=== PATIENT | female | born 1960 | race Caucasian/White ===

== ENCOUNTER 2017-04-19 10:32 | Outpatient (CLI) | payer OTHER ==
--- NOTE | 2017-04-20 12:46 | Mammography Report ---
DIGITAL SCREENING MAMMOGRAM: 04/19/2017 CLINICAL INDICATION: A 56-year-old with history of late childbearing, for screening. COMPARISON: 04/2016, 04/2015, 04/2014, 04/2013, 04/2012, 04/2011, 03/2010. TECHNIQUE: Routine CC and MLO projections were obtained of the breasts. FINDINGS: Parenchymal tissue within both breasts is heterogeneously dense, which may lower the sensi tivity of mammography; however, there are no dominant masses, suspicious microcalcifications, or seco ndary signs of malignancy. In comparison to the previous studies, there are no significant changes. ASSESSMENT: NO MAMMOGRAPHIC EVIDENCE OF MALIGNANCY. NO SIGNIFICANT INTERVAL CHANGES. RECOMMENDATION: Screening mammography is recommended annually. BIRADS category 1 - negative. STANDARD QUALIFYING STATEMENTS 1. This examination was reviewed with the aid of Computed-Aided Detection (CAD). 2. A negative or benign imaging report should not delay biopsy if clinically suspicious findings are present. Consider surgical consultation if warranted. More than 5% of cancers are not identified by i maging. 3. Dense breasts may obscure an underlying neoplasm. JOB #: [id number] EXT JOB #:[id number]
== END 2017-04-19 10:33 | disposition home or self-care (01) ==
LOC: DI 10:32
PROVIDERS: ATTEND Nurse Practitioner Family
DX: Z12.31 Encounter for screening mammogram for malignant neoplasm of breast (principal)
CPT/HCPCS: 77067

== ENCOUNTER 2018-04-30 15:58 | Outpatient (CLI) | payer BC ==
--- NOTE | 2018-05-02 08:38 | Mammography Report ---
Reason: ROUTINE MAMMO Procedure Date: 04/30/2018 Accession Number: [id number] / [id number] Procedure: LORAINE - Screening Mammo Dig Bilat CPT Code: FULL RESULT: EXAM: Screening Mammo Dig Bilat DATE: 04/30/2018 4:15 PM CLINICAL HISTORY: Screening mammogram TECHNIQUE: Bilateral CC and MLO views were obtained. COMPARISON: Mammogram 04/19/2017 FINDINGS: The breast parenchyma is extremely dense which may limit the sensitivity of mammography. There are benign-appearing calcifications. No suspicious masses, clustered microcalcifications, or regions of architectural distortion are identified. IMPRESSION: Benign findings RECOMMENDATION: Routine annual screening unless otherwise clinically indicated. BIRADS CATEGORY 2: Benign findings STANDARD QUALIFYING STATEMENTS: 1. This examination was reviewed with the aid of Computer-Aided Detection (CAD). 2. A negative or benign imaging report should not delay biopsy if clinically suspicious findings are present. Consider surgical consultation if warrented. More than 5% of cancers are not identified by imaging. 3. Dense breasts may obscure an underlying neoplasm.
== END 2018-04-30 15:59 | disposition home or self-care (01) ==
LOC: DI 15:58
PROVIDERS: ATTEND Radiology Diagnostic Radiology
DX: Z12.31 Encounter for screening mammogram for malignant neoplasm of breast (principal); Z53.9 Procedure and treatment not carried out, unspecified reason
CPT/HCPCS: 77067

== ENCOUNTER 2019-05-01 16:00 | Outpatient (CLI) | payer BC ==
--- NOTE | 2019-05-05 18:01 | Mammography Report ---
Reason: SCREENING MAMMO Procedure Date: 05/01/2019 Accession Number: [id number] / [id number] Procedure: LORAINE - Screening Mammo w/Bob CPT Code: FULL RESULT: EXAM: Screening Mammo w/Bob DATE: 05/01/2019 4:20 PM CLINICAL HISTORY: Routine screening TECHNIQUE: (B) - Bilateral CC and MLO views were obtained. COMPARISON: 04/30/2018, 04/19/2017, 05/05/2016 and 04/30/2015 PARENCHYMAL PATTERN: (VD) - The breasts demonstrate extremely dense parenchyma bilaterally, limiting the sensitivity of mammography. FINDINGS: No significant interval change. There are no suspicious masses, calcifications, or areas of distortion. IMPRESSION: Negative examination. BI-RADS category 1. RECOMMENDATION: (ANNUAL) - Recommend routine annual screening mammography. BI-RADS CATEGORY: (1) - Negative. STANDARD QUALIFYING STATEMENTS: 1. This examination was not reviewed with the aid of Computer-Aided Detection (CAD). 2. A negative or benign imaging report should not preclude biopsy if clinically suspicious findings are present. 3. Dense breasts may obscure an underlying neoplasm. 4. This examination was reviewed with the aid of 3D breast imaging (tomosynthesis).
== END 2019-05-01 16:01 | disposition home or self-care (01) ==
LOC: DI 16:00
DX: Z12.31 Encounter for screening mammogram for malignant neoplasm of breast (principal)
CPT/HCPCS: 77063; 77067

== ENCOUNTER 2020-07-21 12:22 | Outpatient (CLI) | payer OTHER ==
--- NOTE | 2020-07-22 07:44 | Mammography Report ---
BILATERAL DIGITAL SCREENING MAMMOGRAM 3D/2D: 07/21/2020 CLINICAL: Routine screening. Comparison is made to exams dated: 05/01/2019 mammogram, 04/30/2018 mammogram, 04/19/2017 mammogram, mammogram, 04/30/2015 mammogram, and 04/29/2014 mammogram - [facility]. The tissue of both breasts is heterogeneously dense. This may lower the sensitivity of mammography. No significant masses, calcifications, or other findings are seen in either breast. There has been no significant interval change. IMPRESSION: NEGATIVE There is no mammographic evidence of malignancy. A 1 year screening mammogram is recommended. This exam was interpreted at Station ID: [id number]. NOTE: For mammograms, a report in lay terms will be sent to the patient. Approximately 15% of breast malignancies will not be visualized mammographically. In the management of a palpable breast mass, a negative mammogram must not discourage biopsy of a clinically suspicious lesion. Electronically Signed By: Jono Aguayo M.D. atkari/lindsey:07/21/2020 13:58:24 ACR BI-RADS Category 1: Negative 3341F PARENCHYMAL PATTERN: (D) - The breast(s) demonstrate(s) heterogeneously dense fibroglandular mayur cisneros. BI-RADS CATEGORY: (1) - 1 RECOMMENDATION: (ANNUAL) - Recommend routine annual screening mammography. [id number] 1 year screening LATERALITY: (B)
== END 2020-07-21 12:23 | disposition home or self-care (01) ==
LOC: DI.N 12:22
DX: Z12.31 Encounter for screening mammogram for malignant neoplasm of breast (principal)

== ENCOUNTER 2021-08-08 09:04 | Outpatient (CLI) | payer OTHER ==
--- NOTE | 2021-08-09 11:47 | Mammography Report ---
BILATERAL DIGITAL SCREENING MAMMOGRAM 3D/2D: 08/08/2021 CLINICAL: Routine screening. Comparison is made to exams dated: 07/21/2020 mammogram, 05/01/2019 mammogram, 04/30/2018 mammogram, mammogram, 05/05/2016 mammogram, and 04/30/2015 mammogram - [facility]. The tissue of both breasts is heterogeneously dense. This may lower the sensitivity of mammography. There is a possible asymmetry in the right breast anterior depth central to the nipple seen on the cr aniocaudal view only. There is architectural distortion associated with the asymmetry. No other significant masses, calcifications, or other findings are seen in either breast. IMPRESSION: INCOMPLETE: NEEDS ADDITIONAL IMAGING EVALUATION The possible asymmetry in the right breast is indeterminate. Additional views with possible ultrasou nd are recommended. This exam was interpreted at Station ID: [id number]. NOTE: For mammograms, a report in lay terms will be sent to the patient. Approximately 15% of breast malignancies will not be visualized mammographically. In the management of a palpable breast mass, a negative mammogram must not discourage biopsy of a clinically suspicious lesion. Electronically Signed By: Shaun Tyson M.D., jr/lindsey:08/08/2021 11:50:00 ACR BI-RADS Category 0: Incomplete 3340F PARENCHYMAL PATTERN: (D) - The breast(s) demonstrate(s) heterogeneously dense fibroglandular pardilshady ma. BI-RADS CATEGORY: (0) - 0 Mammo and [place] [id number] Immediate follow-up LATERALITY: (B)
== END 2021-08-08 09:05 | disposition home or self-care (01) ==
LOC: DI.N 09:04
DX: Z12.31 Encounter for screening mammogram for malignant neoplasm of breast (principal); R92.8 Other abnormal and inconclusive findings on diagnostic imaging of breast

== ENCOUNTER 2021-08-29 09:18 | Outpatient (CLI) | payer OTHER ==
--- NOTE | 2021-08-30 17:25 | Mammography Report ---
UNILATERAL RIGHT DIGITAL DIAGNOSTIC MAMMOGRAM 3D/2D: 08/29/2021 CLINICAL: Patient returns today to evaluate an asymmetry in the right breast. Comparison is made to exams dated: 08/08/2021 mammogram, 07/21/2020 mammogram, 05/01/2019 mammogram, mammogram, and 04/19/2017 mammogram - [facility]. The tissue of right moshe st is extremely dense, which lowers the sensitivity of mammography. There is a possible asymmetry in the right breast anterior depth central to the nipple seen on the cr aniocaudal view only. This is less prominent on additional views. No other significant masses or calcifications are seen in the breast. IMPRESSION: INCOMPLETE: NEEDS ADDITIONAL IMAGING EVALUATION Possible asymmetry in the right breast is indeterminate. A targeted ultrasound is recommended and will immediately follow. This exam was interpreted at Station ID: [id number]. NOTE: For mammograms, a report in lay terms will be sent to the patient. Approximately 15% of breast malignancies will not be visualized mammographically. In the management of a palpable breast mass, a negative mammogram must not discourage biopsy of a clinically suspicious lesion. Electronically Signed By: Freddy Adams M.D. slc/:08/29/2021 09:58:30 ACR BI-RADS Category 0: Incomplete 3340F PARENCHYMAL PATTERN: (VD) - The breast(s) demonstrate(s) extremely dense parenchyma, limiting the sen sitivity of mammography. BI-RADS CATEGORY: (0) - 0 Ultrasound [id number] Immediate follow-up LATERALITY: (B)
--- NOTE | 2021-08-30 17:25 | Ultrasound Report ---
LIMITED ULTRASOUND OF RIGHT BREAST: 08/29/2021 CLINICAL: Patient returns today to evaluate a focal asymmetry in the right breast. Comparison is made to exams dated: 08/29/2021 mammogram, 08/08/2021 mammogram, 07/21/2020 mammogram, mammogram, and 04/30/2018 mammogram - [facility]. Real-time ultrasound of the right breast 12 o'clock, and retroareolar regions was performed. [facility] radha images of the real-time examination were reviewed. No significant abnormalities were seen sonographically in the right breast in the region of possible asymmetry. IMPRESSION: NEGATIVE There is no sonographic evidence of malignancy. A 1 year screening mammogram is recommended. Exam findings were conveyed to the patient. This exam was interpreted at Station ID: [id number]. Electronically Signed By: Freddy Adams M.D. slc/:08/29/2021 12:37:47 Ultrasound BI-RADS: 1 Negative BI-RADS CATEGORY: (1) - 1 RECOMMENDATION: (ANNUAL) - Recommend routine annual screening mammography. [id number] 1 year screening LATERALITY: (B)
== END 2021-08-29 09:19 | disposition home or self-care (01) ==
LOC: DI 09:18
PROVIDERS: ATTEND Internal Medicine
DX: R92.8 Other abnormal and inconclusive findings on diagnostic imaging of breast (principal)

== ENCOUNTER 2022-09-06 11:13 | Outpatient (CLI) | payer OTHER ==
--- NOTE | 2022-09-07 12:17 | Mammography Report ---
BILATERAL DIGITAL SCREENING MAMMOGRAM 3D/2D: 09/06/2022 CLINICAL: Routine screening. Family history of breast cancer. Comparison is made to exams dated: 08/29/2021 mammogram, 08/08/2021 mammogram, 07/21/2020 mammogram, mammogram, 04/30/2018 mammogram, and 04/19/2017 mammogram - [facility]. Both breasts are extremely dense, which lowers the sensitivity of mammography (category d />75% gland ular tissue). No significant masses, calcifications, or other findings are seen in either breast. There has been no significant interval change. IMPRESSION: NEGATIVE There is no mammographic evidence of malignancy. A 1 year screening mammogram is recommended. Based on Tyrer-Cuzick model (a risk assessment model), the patient's lifetime risk is 22.6% and her 1 0 year risk is 10.6%. If a patient has an elevated risk, a more comprehensive evaluation should be co nsidered and/or a referral to a genetic counselor. The [place] [employer], [place] [employer], and NCCN Guidelines advise the consideration of Breast MRI as an adjunct to screening mammo graphy in patients whose "Lifetime risk to develop breast cancer" is 20% or higher. This exam was interpreted at Station ID: [id number]. NOTE: For mammograms, a report in lay terms will be sent to the patient. Approximately 15% of breast malignancies will not be visualized mammographically. In the management of a palpable breast mass, a negative mammogram must not discourage biopsy of a clinically suspicious lesion. Electronically Signed By: Jono carey/lindsey:09/06/2022 17:19:37 ACR BI-RADS Category 1: Negative 3341F PARENCHYMAL PATTERN: (VD) - The breast(s) demonstrate(s) extremely dense parenchyma, limiting the sen sitivity of mammography. BI-RADS CATEGORY: (1) - 1 RECOMMENDATION: (ANNUAL) - Recommend routine annual screening mammography. [id number] 1 year screening LATERALITY: (B)
== END 2022-09-06 11:14 | disposition home or self-care (01) ==
LOC: DI 11:13
DX: Z12.31 Encounter for screening mammogram for malignant neoplasm of breast (principal); Z80.3 Family history of malignant neoplasm of breast

== ENCOUNTER 2023-09-24 10:13 | Outpatient (CLI) | payer OTHER ==
--- NOTE | 2023-09-25 16:23 | Mammography Report ---
BILATERAL DIGITAL SCREENING MAMMOGRAM 3D/2D: 09/24/2023 CLINICAL: Routine screening. Comparison is made to exams dated: 09/06/2022 mammogram, 08/29/2021 ultrasound, 08/29/2021 mammogram, a nd 08/08/2021 mammogram - [facility]. Both breasts are heterogeneously dense, which may obscure small masses (category c / 51-75% glandular tissue). No significant masses, calcifications, or other findings are seen in either breast. There has been no significant interval change. IMPRESSION: NEGATIVE There is no mammographic evidence of malignancy. A 1 year screening mammogram is recommended. Based on the Tyrer Cuzick model (a risk assessment model) the patient's lifetime risk is 14.9% and he r 10 year risk is 7.1%. According to the ACR, ACS, and NCCN guidelines, an annual breast MRI exam eloy ng with mammogram is recommended if the patient's lifetime risk is 20% or greater. This exam was interpreted at Station ID: [id number]. NOTE: For mammograms, a report in lay terms will be sent to the patient. Approximately 15% of breast malignancies will not be visualized mammographically. In the management of a palpable breast mass, a negative mammogram must not discourage biopsy of a clinically suspicious lesion. Electronically Signed By: Petrona stewart/lindsey:09/24/2023 14:54:55 letter sent: No_Letter ACR BI-RADS Category 1: Negative 3341F PARENCHYMAL PATTERN: (D) - The breast(s) demonstrate(s) heterogeneously dense fibroglandular mayur cisneros. BI-RADS CATEGORY: (1) - 1 Mammogram [id number] 1 year screening LATERALITY: (B)
== END 2023-09-24 10:14 | disposition home or self-care (01) ==
LOC: DI 10:13
DX: Z12.31 Encounter for screening mammogram for malignant neoplasm of breast (principal); R92.333 Mammographic heterogeneous density, bilateral breasts